=== PATIENT | male | born 1985 | race African-American/Black ===

== ENCOUNTER → 2017-04-05 | Outpatient (CLI) | payer OTHER ==
[~2017-04-05] MED LIST: HCTZ PO; IBUPROFEN PO; LISINOPRIL PO; NORVASC PO; VICODIN 5/500 T1 TAB PO
[2017-04-05 19:21] LABS: URINE APPEARANCE CLEAR; URINE BILIRUBIN NEG (NEG); URINE BLOOD 1+ (NEG); URINE COLOR YELLOW; URINE GLUCOSE NEG (NEG); URINE KETONE NEG (NEG); URINE LEUKOCYTE ESTERASE NEG (NEG); URINE NITRATE NEG (NEG); URINE PROTEIN 1+ (NEG); URINE SPECIFIC GRAVITY 1.013 (1.003-1.035); URINE UROBILINOGEN 0.2 MG/DL (NEG)
[2017-04-05 19:22] LABS: BASOPHIL# 0.1 X10e3 (0-0.3); BASOPHIL% 0.9 % (0-2.5); EOSINOPHIL# 0.3 X10e3 (0-0.7); HEMATOCRIT 49.5 % (38.0-50.0); HEMOGLOBIN 16.3 gm/dL (13.0-16.0); LYMPHOCYTE# 2.2 X10e3 (1.0-3.5); LYMPHOCYTE% 32.6 % (17.0-45.0); MEAN CELL VOLUME 84.7 FL (83-96); MEAN CORPUSCULAR HEMOGLOBIN 27.9 PG (28-34); MEAN CORPUSCULAR HGB CONC 32.9 g/dL (30-36); MEAN PLATELET VOLUME 8.8 FL (6.5-11.5); MONOCYTE# 0.5 X10e3 (0-1.0); MONOCYTE% 6.7 % (3.0-12.0); NEUTROPHIL# 3.8 X10e3 (1.5-7.1); NEUTROPHIL% 55.8 % (40-75); PLATELET COUNT 239 X10e3 (140-420); RED BLOOD COUNT 5.85 X10e (3.90-5.60); RED CELL DISTRIBUTION WIDTH 14.2 % (11.0-15.5); WHITE BLOOD COUNT 6.8 X10e3 (4.0-10.5)
[2017-04-05 19:23] LABS: DIFF IND NO
[2017-04-05 19:24] LABS: U HYALINE CASTS AUWI 0-2 /[LPF]; URBCS1 AUWI 0-2 /[HPF] (0-2); URINE BACTERIA AUWI NEG (NEGATIVE); URINE SQUAMOUS EPITHELIAL CELL NONE SEEN /[HPF]; UWBCS1 AUWI 0-2 (0-5)
[2017-04-05 19:32] LABS: CREATININE,RANDOM URINE 148 mg/dL; TOTAL PROTEIN,RANDOM URINE 46 mg/dl (<10)
[2017-04-05 19:34] LABS: URINE SOURCE CLEAN CATCH
[2017-04-05 20:16] LABS: ALBUMIN SERUM 4.4 g/dL (3.5-5.0); BILIRUBIN,TOTAL 0.7 mg/dL (0.2-2.0); BUN/CREATININE RATIO 8.57; CREATININE SERUM 3.5 mg/dL (0.6-1.4); GLOM FILT RATE Estimated 25.1 mL/min (>60); PHOSPHOROUS 3.6 mg/dL (2.5-4.6); PROTEIN TOTAL SERUM 7.5 g/dL (6.0-8.3); URIC ACID 9.6 mg/dL (2.6-7.2)
== END | disposition home or self-care (01) ==
LOC: CLAB 18:48
PROVIDERS: Internal Medicine Nephrology
DX: N18.4 Chronic kidney disease, stage 4 (severe) (principal)
CPT/HCPCS: 80053; 81003; 82570; 84100; 84156; 84550; 85025

== ENCOUNTER → 2017-06-06 | Outpatient (CLI) | payer OTHER ==
[2017-06-06 14:37] LABS: HEMATOCRIT 51.5 % (38.0-50.0); HEMOGLOBIN 17.7 gm/dL (13.0-16.0); MEAN CELL VOLUME 83.8 FL (83-96); MEAN CORPUSCULAR HEMOGLOBIN 28.8 PG (28-34); MEAN CORPUSCULAR HGB CONC 34.4 g/dL (30-36); MEAN PLATELET VOLUME 8.4 FL (6.5-11.5); RED BLOOD COUNT 6.14 X10e (3.90-5.60); RED CELL DISTRIBUTION WIDTH 14.1 % (11.0-15.5)
[2017-06-06 14:47] LABS: URINE APPEARANCE CLEAR; URINE BILIRUBIN NEG (NEG); URINE BLOOD NEG (NEG); URINE COLOR YELLOW; URINE GLUCOSE NEG (NEG); URINE KETONE NEG (NEG); URINE LEUKOCYTE ESTERASE NEG (NEG); URINE NITRATE NEG (NEG); URINE PROTEIN 1+ (NEG); URINE SPECIFIC GRAVITY 1.012 (1.003-1.035); URINE UROBILINOGEN 0.2 MG/DL (NEG)
[2017-06-06 14:49] LABS: URBCS1 AUWI 0-2 /[HPF] (0-2); URINE BACTERIA AUWI NEG (NEGATIVE); URINE SQUAMOUS EPITHELIAL CELL NONE SEEN /[HPF]; UWBCS1 AUWI 0-2 (0-5)
[2017-06-06 15:01] LABS: CREATININE,RANDOM URINE 124 mg/dL; POTASSIUM,URINE RANDOM 25 mmol/L; SODIUM URINE RANDOM 53 mmol/L; TOTAL PROTEIN,RANDOM URINE 36 mg/dl (<10)
[2017-06-06 15:15] LABS: BUN/CREATININE RATIO 10.62; CALCIUM SERUM 9.8 mg/dL (8.4-10.2); CREATININE SERUM 3.2 mg/dL (0.6-1.4); POTASSIUM 4.7 mmol/L (3.5-5.1)
== END | disposition home or self-care (01) ==
LOC: CLAB 13:48
PROVIDERS: Internal Medicine Nephrology
DX: I12.9 Hypertensive chronic kidney disease with stage 1 through stage 4 chronic kidney disease, or unspecified chronic kidney disease (principal); N18.4 Chronic kidney disease, stage 4 (severe)
CPT/HCPCS: 36415; 80048; 81003; 82570; 84133; 84156; 84300; 85027; 87086; 89190